=== PATIENT | female | born 1990 | race Caucasian/White ===

== ENCOUNTER → 2019-07-26 | Outpatient (CLI) | payer OTHER | LOC: COL.RAD 12:34 → EDBD 12:34 → COL.RAD 15:04 | DX: Q62.39 Other obstructive defects of renal pelvis and ureter (principal) | CPT/HCPCS: A9562; J1940 ==

== ENCOUNTER 2019-08-17 10:37 | Day surgery (SDC) | payer OTHER ==
[~2019-08-17] VITALS: Ht 170.2 cm; Wt 57.0 kg
[2019-08-17 11:21] VITALS: BP 127/78; PULSE 90; TEMP 98.3
[2019-08-17] MEDS ORDERED: LO-ZUMANDIMINE1 EACH PO (11:31)
[2019-08-17 13:17] VITALS: TEMP 98.8
[2019-08-17 13:40] VITALS: BP 118/71; PULSE 71
--- NOTE | 2019-08-17 13:40 | NUR ---
TO RM 8 PER CART FROM PACU. ALERT DRINKING WATER AND TALKING TO STAFF. C/O SLIGHT DISCOMFORT,BUT DENIES NEED FOR PAIN MEDICATION DENIES NAUSEA OR VOMITING.
[2019-08-17 13:45] VITALS: BP 124/72; PULSE 77
--- NOTE | 2019-08-17 13:45 | NUR ---
RECEIVED SPRITE AND CRACKERS
[2019-08-17 14:00] VITALS: BP 115/76; PULSE 94
--- NOTE | 2019-08-17 14:00 | NUR ---
ATE 100% AND TOLERATED WELL.
[2019-08-17 14:15] VITALS: BP 125/76; PULSE 94
--- NOTE | 2019-08-17 14:15 | NUR ---
AMBULATED TO BATHROOM. VOIDED AND AMBULATED BACK TO , TOLERATED WELL.
--- NOTE | 2019-08-17 14:25 | NUR ---
RECEIVED DISCHARGE INSTRUCTIONS AND VERBALIZED UNDERSTANDING DISCONTINUED IV AND INT- CATHETER INTACT.
--- NOTE | 2019-08-17 14:40 | NUR ---
DISCHARGED PER WC BY NURSING STAFF TO PRIVATE CAR IN CARE OF Blanca HENRY
== END 2019-08-17 14:48 | disposition home or self-care (01) ==
LOC: SDCO 10:37
DX: N13.1 Hydronephrosis with ureteral stricture, not elsewhere classified (principal); N18.9 Chronic kidney disease, unspecified
CPT/HCPCS: C1769; C2617; J1100; J2405; J2704; J3010; J7120; Q9967